=== PATIENT | female | born 1960 | race Caucasian/White ===

== ENCOUNTER → 2017-01-13 | Outpatient (CLI) | payer MEDICARE, OTHER ==
[~2017-01-13] MED LIST: AMITRIPTYLINE H25 M1 PO; CYMBALTA 60MG60 MG PO; EFFEXOR-XR150 MG PO; KLONOPIN 0.5MG0.5 MG PO; LEVOTHYROXIN0.112 MG PO; OXYCONTIN80 MG PO; PERCOCET 325 MG1 TAB PO; ROBAXIN 50500 MG/TAB PO; SEROQUEL50 MG PO; TRICOR 48MG48 MG PO; TRICOR145 MG PO
== END ==
LOC: MC.RAD 11:00
DX: Z12.31 Encounter for screening mammogram for malignant neoplasm of breast (principal)

== ENCOUNTER → 2018-04-19 | Outpatient (CLI) | payer MEDICARE, OTHER | END | disposition home or self-care (01) | LOC: COL.RAD 08:09 | DX: N28.1 Cyst of kidney, acquired (principal); R16.0 Hepatomegaly, not elsewhere classified; Z96.89 Presence of other specified functional implants; Z98.890 Other specified postprocedural states; Z90.710 Acquired absence of both cervix and uterus | CPT/HCPCS: Q9967 ==

== ENCOUNTER → 2018-06-15 | Outpatient (CLI) | payer MEDICARE, OTHER | LOC: COL.RAD 14:30 | DX: S06.0X9D Concussion with loss of consciousness of unspecified duration, subsequent encounter (principal) ==

== ENCOUNTER → 2018-09-16 | Outpatient (CLI) | payer MEDICARE, OTHER | LOC: MC.RAD 07-14 14:00 | DX: Z12.31 Encounter for screening mammogram for malignant neoplasm of breast (principal) ==

== ENCOUNTER → 2019-03-11 | Outpatient (CLI) | payer MEDICARE, OTHER | LOC: COL.RAD 10:17 | DX: M25.451 Effusion, right hip (principal) | CPT/HCPCS: Q9967 ==

== ENCOUNTER → 2020-03-14 | Outpatient (CLI) | payer MEDICARE, OTHER | LOC: COL.RAD 03-13 09:00 | DX: M25.551 Pain in right hip (principal) | CPT/HCPCS: J3301; Q9967 ==

== ENCOUNTER → 2020-08-29 | Outpatient (CLI) | payer MEDICARE, OTHER ==
[~2020-08-29] MED LIST changes: +LINZESS290CAP PO; +LIORESAL 1010 MG/TAB PO; +NEURONTIN300 MG/CAP PO; +PERCOCET 325 MG1 TA3 PO; +PRILOSEC 20MG20 MG PO; +ROXICODONE15 MG PO; +SEROQUEL XR300 MG PO; +SONATA 10MG10 MG PO; +SYNTHROID0.125 MG/T PO
== END ==
LOC: COL.RAD 12:31
DX: D47.2 Monoclonal gammopathy (principal); M89.9 Disorder of bone, unspecified; Z96.641 Presence of right artificial hip joint

== ENCOUNTER 2021-01-25 17:44 | Emergency (ER) | payer MEDICARE, OTHER ==
[~2021-01-25] VITALS: Ht 160 cm; Wt 64.2 kg
[2021-01-25 20:45] VITALS: BP 117/88; PULSE 78; TEMP 97.8
== END 2021-01-25 20:45 | disposition home or self-care (01) ==
LOC: COL.ER 17:44
DX: S06.0X1A Concussion with loss of consciousness of 30 minutes or less, initial encounter (principal); I10 Essential (primary) hypertension; E78.5 Hyperlipidemia, unspecified; G89.29 Other chronic pain; M54.9 Dorsalgia, unspecified; K21.9 Gastro-esophageal reflux disease without esophagitis; F31.9 Bipolar disorder, unspecified; G62.9 Polyneuropathy, unspecified; F17.210 Nicotine dependence, cigarettes, uncomplicated; Z79.899 Other long term (current) drug therapy; W19.XXXA Unspecified fall, initial encounter; W22.8XXA Striking against or struck by other objects, initial encounter

== ENCOUNTER 2021-01-28 10:23 | Outpatient (CLI) | payer MEDICARE, OTHER ==
[~2021-01-28] VITALS: Ht 162.6 cm; Wt 64.9 kg
[2021-01-28 10:44] VITALS: BP 96/63; PULSE 99; TEMP 98.4
[2021-01-28 11:45] VITALS: BP 104/68; PULSE 83
--- NOTE | 2021-01-28 11:45 | NUR ---
Report from Olamide SUBRAMANIAN. Bandaid to low back small amount of blood noted. VSS.
[2021-01-28 12:00] VITALS: BP 102/62; PULSE 81
[2021-01-28 12:15] VITALS: BP 100/60; PULSE 72
[2021-01-28 12:30] VITALS: BP 106/72; PULSE 78
[2021-01-28 12:45] VITALS: BP 104/78; PULSE 68
--- NOTE | 2021-01-28 12:49 | NUR ---
Discharge instructions given. Ambulated to bathroom with steady gait.
--- NOTE | 2021-01-28 13:09 | NUR ---
Transferred to private car by perez
== END 2021-01-28 13:10 | disposition home or self-care (01) ==
LOC: COL.RAD 10:23
DX: M79.2 Neuralgia and neuritis, unspecified (principal); M54.2 Cervicalgia; M25.412 Effusion, left shoulder
CPT/HCPCS: Q9967

== ENCOUNTER → 2021-03-26 | Outpatient (CLI) | payer MEDICARE, OTHER | LOC: COL.RAD 13:52 | DX: S46.012A Strain of muscle(s) and tendon(s) of the rotator cuff of left shoulder, initial encounter (principal) | CPT/HCPCS: Q9967 ==

== ENCOUNTER 2021-07-31 08:56 | Outpatient (CLI) | payer MEDICARE, OTHER ==
[~2021-07-31] VITALS: Ht 162.6 cm; Wt 65.3 kg
[~2021-07-31 08:56] MED LIST changes: +NATURAL IRON65 MG PO; +PRISTIQ100 MG PO; +VENTOLIN0.09 MG IH
[2021-07-31 09:24] VITALS: BP 107/73; PULSE 86; TEMP 97.8
[2021-07-31 10:40] VITALS: BP 95/60; PULSE 75
[2021-07-31 11:00] VITALS: BP 94/78; PULSE 80
[2021-07-31 11:15] VITALS: BP 102/63; PULSE 88
[2021-07-31 11:30] VITALS: BP 99/61; PULSE 79
[2021-07-31 12:00] VITALS: BP 98/71; PULSE 88
== END 2021-07-31 12:00 | disposition home or self-care (01) ==
LOC: COL.RAD 08:56
DX: M47.816 Spondylosis without myelopathy or radiculopathy, lumbar region (principal); M48.061 Spinal stenosis, lumbar region without neurogenic claudication
CPT/HCPCS: Q9965